=== PATIENT | male | born 1995 | race African-American/Black ===

== ENCOUNTER 2019-07-29 09:58 | Emergency (ER) | payer SELFPAY ==
[2019-07-29 10:05] VITALS: BP 149/82
[2019-07-29] MEDS ORDERED: FAMOTIDINE 20 MG TABLET PO ONE (11:12)
[2019-07-29] MEDS ORDERED: DEXAMETHASONE 4 MG TABLET PO ONE (11:12)
[2019-07-29] MEDS ORDERED: DIPHENHYDRAMINE HCL 50 MG CAPSULE PO ONE (11:12)
--- NOTE | 2019-07-29 11:15 | ER Document Report ---
HPI - HPI Patient complains to provider of: Swelling to upper lip Time Seen by Provider: 07/29/19 10:53 Onset: This morning Onset/Duration: Gradual Quality of pain: Achy Pain Level: 1 Context: Patient presents stating that he was sleeping last night and felt something on his upper lip. Patient thinks that he killed a bug that may have bit him on the upper lip area. Patient with a few small bumps to the upper lip that are tender. Patient denies any previous history of cold sores or herpes infection. Associated Symptoms: Other - Insect bite to lip. denies: Fever, Headache Exacerbated by: Denies Relieved by: Denies Similar symptoms previously: No Recently seen / treated by doctor: No - ROS ROS below otherwise negative: Yes Systems Reviewed and Negative: Yes All other systems reviewed and negative - CONSTITUTIONAL Constitutional: DENIES: Fever, Chills - EENT EENT: DENIES: Sore Throat, Ear Pain, Eye problems - DERM Skin Problems: Rash Past Medical History - General Information source: Patient - Social History Smoking Status: Never Smoker Chew tobacco use (# tins/day): No Drug Abuse: None Occupation: [employer] Lives with: Family Family History: Reviewed & Not Pertinent Patient has suicidal ideation: No Patient has homicidal ideation: No Pulmonary Medical History: Reports: Hx Asthma - "childhood" Endocrine Medical History: Denies: Hx Diabetes Mellitus Type 1, Hx Diabetes Mellitus Type 2 Musculoskeletal Medical History: Reports Hx Arthritis, Reports Hx Muscle Spasm - arthritis in knees Psychiatric Medical History: Reports: Hx Anxiety Denies: Hx Attention Deficit Hyperactivity Disorder Past Surgical History: Reports: Hx Orthopedic Surgery - LEFT HAND - Immunizations Immunizations up to date: Yes Hx Diphtheria, Pertussis, Tetanus Vaccination: Yes Vertical Provider Document - CONSTITUTIONAL Agree With Documented VS: Yes Exam Limitations: No Limitations General Appearance: WD/WN, No Apparent Distress - INFECTION CONTROL TRAVEL OUTSIDE OF THE [place] IN LAST 30 DAYS: No - HEENT HEENT: Atraumatic, Normocephalic Notes: Patient with 2 papular lesions to left side of upper lip. No angioedema, no potential airway compromise - NECK Neck: Normal Inspection, Supple - RESPIRATORY Respiratory: Breath Sounds Normal, No Respiratory Distress - CARDIOVASCULAR Cardiovascular: Regular Rate, Regular Rhythm - MUSCULOSKELETAL/EXTREMETIES Musculoskeletal/Extremeties: MAEW - NEURO Level of Consciousness: Awake, Alert, Appropriate Motor/Sensory: No Motor Deficit - DERM Integumentary: Warm, Dry Course - Re-evaluation Re-evalutation: 07/29/19 11:13 Patient is insistent that he knocked a bug off of his lip last night. Patient suspects insect bite. Patient denies any previous history of cold sores or herpetic lesions. Discussed with patient concerned about possible herpetic lesions given the exam findings. Patient insistent that he knocked a bug off of his face that bit him. Will treat for insect bite at this time. Good return precautions discussed. No concern for angioedema at this time. - Vital Signs Vital signs: Temp Pulse Resp BP Pulse Ox 98.0 F 78 15 149/82 H 98 07/29/19 10:03 07/29/19 10:03 07/29/19 10:03 07/29/19 10:03 07/29/19 10:03 Discharge - Discharge Clinical Impression: Insect bite Qualifiers: Encounter type: initial encounter Site of insect bite: head Site of insect bite of head: lip Qualified Code(s): S00.561A - Insect bite (nonvenomous) of lip, initial encounter Condition: Stable Disposition: HOME, SELF-CARE Instructions: Use of Diphenhydramine, Insect Bites ([facility]), Steroid Medication Additional Instructions: Return immediately for any new or worsening symptoms Followup with your primary care provider, call tomorrow to make a followup appointment Take Benadryl [id number] as directed to help with symptoms Prescriptions: Famotidine [Pepcid 20 mg Tablet] 20 mg PO BID #12 tablet Forms: Return to Work Referrals: [facility] [Provider Group] - Follow up as needed
== END 2019-07-29 11:23 | disposition home or self-care (01) ==
LOC: ER 09:58
DX: S00.561A Insect bite (nonvenomous) of lip, initial encounter (principal); R22.0 Localized swelling, mass and lump, head; W57.XXXA Bitten or stung by nonvenomous insect and other nonvenomous arthropods, initial encounter; J45.909 Unspecified asthma, uncomplicated
CPT/HCPCS: 99283